=== PATIENT | male | born 1995 | race Caucasian/White ===

== ENCOUNTER 2016-12-29 12:47 | Emergency (ER) | payer OTHER ==
--- NOTE | 2016-12-29 13:47 | RAD ---
Indication: Left foot pain. 3 views left foot demonstrates no fracture. No other bone or joint abnormality is noted. IMPRESSION: No fracture of left foot is noted.
[2016-12-29 14:54] VITALS: BP 156/58
--- NOTE | 2016-12-29 15:00 | ED ---
Lower Extremity - HPI Summary HPI Summary: Patient presents to the ED with CC of left foot pain after falling backwards last evening with a mechanical fall. Swelling is noted over the laterodorsal side of the left foot without discolorations. He is unable to ambulate. He notes to a 4/10 pain which is throbbing, non-radiating, worse with ambulation and better with rest. ROM intact, but strength is limited. Thorough physical exam was performed. Pain on palpation over lateral aspect and superior aspect of ankle over ATFL and deltoid ligaments of the foot without radiation into the ankle. No pain on palpation over medial side. Due to patient pain around injury , physical exam was limited. Anterio drawer test and talar tilt test negative. Padilla test negative. Limited ROM. Dorsiflexion, great toe extension and plantar flexion intact. No pain on palpation over medial or lateral lower extremity. No pain with knee flexion. Pulses intact bilaterally. No temperature change or pallor noted bilaterally. Swelling noted on lateral aspect. No lesion or disruption of skin is seen. Unable to bear weight. Injury occurred > 12 hours ago. ETOH on board. Denies SOUZA, head trauma or LOC. Mechanical fall was witnessed. - History of Current Complaint Chief Complaint: EDExtremityLower Stated Complaint: LT FOOT PAIN Time Seen by Provider: 12/29/16 13:19 Hx Obtained From: Patient Mechanism Of Injury: Twisted Onset of Pain: Hours Onset/Duration: Hours Severity Initially: Moderate Severity Currently: Moderate Pain Intensity: 6 Pain Scale Used: 0-10 Numeric Timing: Constant Location: Is Discrete @ - left lateral foot Associated Signs And Symptoms: Positive: Swelling Aggravating Factor(s): Standing, Ambulation, Movement, Weight Bearing, Stairs Alleviating Factor(s): Rest, Elevation Able to Bear Weight: No - Risk Factors Gout Risk Factors: Negative DVT Risk Factors: Negative Septic Arthritis Risk Factor: Negative - Allergies/Home Medications Allergies/Adverse Reactions: Allergies Allergy/AdvReac Type Severity Reaction Status Date / Time No Known Allergies Allergy Verified 12/29/16 13:02 PMH/Surg Hx/FS Hx/Imm Hx Previously Healthy: Yes - Immunization History Hx Pertussis Vaccination: No Immunizations Up to Date: Unable to Obtain/Confirm Infectious Disease History: No Infectious Disease History: Denies: Traveled Outside the [place] in Last 30 Days - Social History Occupation: Student Lives: With Family Alcohol Use: Weekly Hx Substance Use: No Substance Use Type: Reports: None Hx Tobacco Use: No Smoking Status (MU): Never Smoked Tobacco Review of Systems Constitutional: Negative Negative: Fever, Chills, Fatigue ENT: Negative Cardiovascular: Negative Respiratory: Negative Positive: no symptoms reported, see HPI Positive: Arthralgia - left foot pain Positive: Other Neurological: Negative All Other Systems Reviewed And Are Negative: Yes Physical Exam Triage Information Reviewed: Yes Vital Signs On Initial Exam: Initial Vitals Temp Pulse Resp BP Pulse Ox 98.0 F 90 16 135/89 98 12/29/16 12:58 12/29/16 12:58 12/29/16 12:58 12/29/16 12:58 12/29/16 12:58 Vital Signs Reviewed: Yes Appearance: Positive: Well-Appearing, Well-Nourished Skin: Positive: Warm, Skin Color Reflects Adequate Perfusion Head/Face: Positive: Normal Head/Face Inspection Eyes: Positive: EOMI, FOZIA Neck: Positive: Supple, No Lymphadenopathy Respiratory/Lung Sounds: Positive: Clear to Auscultation, Breath Sounds Present Cardiovascular: Positive: Normal, Pulses are Symmetrical in both Upper and Lower Extremities Musculoskeletal: Positive: Pain @ - left foot pain without ankle involvement Neurological: Positive: Speech Normal Psychiatric: Positive: Normal Diagnostics - Vital Signs Vital Signs Temp Pulse Resp BP Pulse Ox 12/29/16 14:53 98.8 F 69 16 156/58 12/29/16 12:58 98.0 F 90 16 135/89 98 - Laboratory Lab Statement: Any lab studies that have been ordered have been reviewed, and results considered in the medical decision making process. Lower Extremity Course/Dx - Course Course Of Treatment: Based on [place] [facility] Rules, patient sent to imaging. Xray negative for fracture or other acute findings. Soft tissue swelling noted over the dorsal aspect of the foot without swelling of the ankle joint. Medial and lateral distal lower extremity without pain and x-rays show no widening of the ankle joint regarding low suspicion for Maisonneuve fx. Ankle was patrica wrapped to patient comfort to allow for immobilization for this period of time. Crutches given. Encouraged Ibuprofen 600mg three times daily with meals for pain. Return precautions given. Educated patient regarding ankle injuries and healing time and the possibility of further evaluation and imaging as orthopedist sees fit. - Diagnoses Differential Diagnosis/HQI/PQRI: Positive: Contusion, Fracture (Closed), Fracture (Open), Sprain, Strain Provider Diagnoses: Sprain of foot, left Discharge - Discharge Plan Condition: Stable Disposition: HOME Patient Education Materials: Ankle Sprain (ED) Referrals: Non Staff,Doctor [Primary Care Provider] - Additional Instructions: Crutches for ambulation given. Ibuprofen 600mg three times daily with meals for pain. If numbness, tingling, decreased sensation, increased pain, temperature changes or pallor noted in toes, come back to ER immediately. Protect the area. For your comfort level, do not bear weight, pull or push until you can injury is somewhat healed. This may involve the need for immobilization or crutches for a period of time. Rest the involved area, but not too long. You may need to be off your injury for some time to allow for healing, however excessive immobilization of joints can lead to stiffness and delay healing time. Early mobilization is encouraged if it is pain-free. Ice. Not directly on the skin. Cover with a towel. Apply ice no more than 30 minutes at a time Compression: You may use and keep an patrica wrap bandage over the injury to decrease swelling. Again, this should be limited and be taken off periodically to encourage early range of motion and mobilization. Elevate: Try to elevate the injured area above the heart whenever possible.
== END 2016-12-29 14:53 | disposition home or self-care (01) ==
LOC: ED 12:47
DX: S93.602A Unspecified sprain of left foot, initial encounter (principal); M79.672 Pain in left foot; W19.XXXA Unspecified fall, initial encounter; Y93.9 Activity, unspecified; Y92.9 Unspecified place or not applicable
CPT/HCPCS: 99282